=== PATIENT | male | born 1940 ===

== ENCOUNTER 2024-06-02 15:01 | Inpatient (IN) | payer MEDICARE ==
[~2024-06-02] VITALS: Ht 180.3 cm; Wt 92.5 kg
[2024-06-02] MEDS ORDERED: CIPR2.5D14 RIGHTEYE (19:43)
[2024-06-02] MEDS ORDERED: OLAN10TA3 IM (19:43)
[2024-06-02] MEDS ORDERED: POLY30DR RIGHTEYE (19:43)
[2024-06-02] MEDS ORDERED: ASPI-495 PO (19:43)
[2024-06-02] MEDS ORDERED: FURO40TA5 PO (19:43)
[2024-06-02] MEDS ORDERED: ROSU20TA2 PO (19:43)
[2024-06-02] MEDS ORDERED: FOLI0.4T6 PO (19:43)
[2024-06-02] MEDS ORDERED: ERYT30GE8 TP (19:43)
[2024-06-02] MEDS ORDERED: PRED20TA PO (19:43)
[2024-06-02] MEDS ORDERED: IPRA3AMP23 IH (19:43)
[2024-06-02] MEDS ORDERED: VIT1CAPS9 PO (19:43)
[2024-06-02] MEDS ORDERED: TAMS-3 PO (19:43)
[2024-06-02] MEDS ORDERED: METO-358 PO (19:43)
[2024-06-02] MEDS ORDERED: VALA100026 PO (19:43)
[2024-06-02 20:00] VITALS: BP 104/61; TEMP 97.5; O2SAT 96
[2024-06-03] MEDS ORDERED: REMEDY ESSENTIAL ZINC PASTE 113 GM TOP PRN (02:15)
[2024-06-03 05:43] VITALS: O2SAT 95
[2024-06-03 06:00] VITALS: BP 124/70; TEMP 97.7; O2SAT 96
[2024-06-03] MEDS ORDERED: PANT40TA49 PO (09:03)
[2024-06-03] MEDS ORDERED: OLAN10VI IM (09:04)
[2024-06-03] MEDS ORDERED: POTA10CA43 PO (10:56)
[2024-06-03] MEDS ORDERED: CEFT1PIG2 IV (11:51)
[2024-06-03] MEDS ORDERED: ENOX40DI SQ (11:51)
[2024-06-03] MEDS ORDERED: AZIT500V8 IV (11:51)
[2024-06-03] MEDS ORDERED: OLANZAPINE 10 MG VIAL IM PRN (12:30)
[2024-06-03] MEDS ORDERED: FOLIC ACID 0.4 MG TABLET PO SCH (12:30)
[2024-06-03] MEDS ORDERED: AZITHROMYCIN 500 MG VIAL IV SCH (12:30)
[2024-06-03] MEDS ORDERED: ALBUTEROL SULFATE 2.5 MG/ 0.5 ML NEBU NEB PRN (12:30)
[2024-06-03] MEDS: VALACYCLOVIR HCL 500 MG TABLET PO SCH ×2 (13:00→17:52)
[2024-06-03] MEDS: CIPROFLOXACIN 0.3% OPHT DROP 2.5 ML BOTTLE RIGHTEYE SCH (13:00)
[2024-06-03] MEDS ORDERED: CEFTRIAXONE 1 G in IV DEXTROSE 5% 50 ML IV SCH (14:00)
[2024-06-03] MEDS: METOPROLOL SUCCINATE XL 50 MG TAB.SR.24H PO SCH (14:00)
[2024-06-03] MEDS: ENOXAPARIN SODIUM 40 MG/0.4 ML DISP.SYRIN SQ SCH (14:28)
[2024-06-03] MEDS: ASPIRIN EC 81 MG TABLET.DR PO SCH (14:30)
[2024-06-03] MEDS: predniSONE 20 MG TABLET PO SCH (14:31)
[2024-06-03] MEDS: TAMSULOSIN HCL 0.4 MG CAP.SR.24H PO SCH (14:31)
[2024-06-03] MEDS: FOLIC ACID 1 MG TABLET PO SCH (14:31)
[2024-06-03] MEDS: FUROSEMIDE 40 MG TABLET PO SCH (14:33)
[2024-06-03 16:25] VITALS: BP 103/53; TEMP 97.8; O2SAT 97
[2024-06-03 19:50] VITALS: BP 95/53; TEMP 98.2; O2SAT 95
[2024-06-03] MEDS: ATORVASTATIN 20 MG TABLET PO SCH (20:26)
[2024-06-04] MEDS: PANTOPRAZOLE SODIUM 40 MG TABLET.DR PO SCH (06:44)
[2024-06-04] MEDS: POTASSIUM CHLORIDE 10 MEQ TAB.PRT.SR PO SCH (08:29)
[2024-06-04 16:11] VITALS: BP 105/51; TEMP 97.8; O2SAT 96
[2024-06-04 21:26] VITALS: BP 116/67; TEMP 97.8; O2SAT 99
[2024-06-04 21:32] VITALS: O2SAT 98
[2024-06-04] MEDS: ZOLPIDEM 5 MG TABLET PO PRN (23:07)
[2024-06-05 06:07] VITALS: BP 138/62; TEMP 98; O2SAT 100
[2024-06-05 06:28] LABS: BASOPHILS % (AUTO) 0.3 % (0.0-2.0); EOSINOPHILS # (AUTO) 0.1 K/uL (0.0-0.7); HEMOGLOBIN 12.7 g/dL (12.5-16.3); LYMPHOCYTES # (AUTO) 1.8 K/uL (0.8-4.8); LYMPHOCYTES % (AUTO) 21.2 % (20.5-51.5); MEAN CORPUSCULAR HEMOGLOBIN 30.3 uug (23.8-33.4); MEAN CORPUSCULAR HGB CONC 33 g/dL (32.5-36.3); MEAN CORPUSCULAR VOLUME 90.9 fL (73.0-96.2); MONOCYTES # (AUTO) 0.9 K/uL (0.1-1.30); MONOCYTES % (AUTO) 10.9 % (0.0-11.0); NEUTROPHILS # (AUTO) 5.6 K/uL (1.8-8.9); NEUTROPHILS % (AUTO) 66.6 % (38.5-71.5); PLATELET COUNT (AUTO) 263 K/uL (152-348); RED BLOOD CELL COUNT(AUTO) 4.18 MIL/uL (4.06-5.63); WHITE BLOOD COUNT (AUTO) 8.4 K/uL (3.6-10.2)
[2024-06-05 06:43] LABS: ALANINE AMINOTRANSFERASE 18 U/L (16-63); ALBUMIN 2.9 g/dL (3.4-5.0); ALKALINE PHOSPHATASE 77 U/L (50-136); ASPARTATE AMINOTRANSFERASE 10 U/L (15-37); BILIRUBIN,TOTAL 0.8 mg/dL (0.2-1.0); CALCIUM 8.7 mg/dL (8.5-10.1); CARBON DIOXIDE 30 mmol/L (21-32); CHLORIDE 99 mmol/L (98-107); CREATININE 1.4 mg/dL (0.6-1.3); GLUCOSE 105 mg/dL (74-106); MAGNESIUM 2.2 mg/dL (1.8-2.4); PHOSPHOROUS 3.6 mg/dL (2.5-4.9); POTASSIUM 3.9 mmol/L (3.5-5.1); SODIUM SERUM 136 mmol/L (136-145); TOTAL PROTEIN, SERUM 6.9 g/dL (6.4-8.2); UREA NITROGEN, BLOOD 24 mg/dL (7-18)
[2024-06-05 06:52] LABS: DIFFERENTIAL COMMENT 1
[2024-06-05 09:57] VITALS: BP 129/60; TEMP 97.8; O2SAT 99
[2024-06-05 14:30] VITALS: O2SAT 96
[2024-06-05 17:59] VITALS: BP 118/62; TEMP 98; O2SAT 99
[2024-06-05 20:00] VITALS: BP 106/57; TEMP 98.9; O2SAT 95
[2024-06-05] MEDS: MELATONIN 3 MG TABLET PO ONE (20:39)
[2024-06-06 05:21] VITALS: BP 130/67; TEMP 98.1; O2SAT 98
[2024-06-06 15:10] VITALS: O2SAT 97
[2024-06-06 20:21] VITALS: BP 105/57; TEMP 98.4; O2SAT 95
[2024-06-06 20:44] VITALS: O2SAT 95
[2024-06-06] MEDS: MELATONIN 3 MG TABLET PO PRN (23:59)
[2024-06-07 05:57] VITALS: BP 126/71; TEMP 97.6; O2SAT 96
[2024-06-07 20:45] VITALS: BP 110/61; TEMP 97.8; O2SAT 95
[2024-06-08 02:51] VITALS: O2SAT 96
[2024-06-08 06:18] VITALS: BP 129/75; TEMP 98; O2SAT 94
[2024-06-08 09:00] VITALS: O2SAT 98
[2024-06-08] MEDS: POLYVINYL ALCOHOL OPHT DROPS 15 ML BOTTLE EACHEYE PRN (09:27)
[2024-06-08 15:59] VITALS: BP 108/54; TEMP 97.8; O2SAT 99
[2024-06-08 20:10] VITALS: BP 97/54; TEMP 97.5; O2SAT 96
[2024-06-09 06:15] VITALS: BP 119/72; TEMP 97.7; O2SAT 97
[2024-06-09 06:44] LABS: CALCIUM 8.7 mg/dL (8.5-10.1); CARBON DIOXIDE 35 mmol/L (21-32); CHLORIDE 98 mmol/L (98-107); CREATININE 1.4 mg/dL (0.6-1.3); GLUCOSE 109 mg/dL (74-106); POTASSIUM 4.4 mmol/L (3.5-5.1); SODIUM SERUM 134 mmol/L (136-145); UREA NITROGEN, BLOOD 28 mg/dL (7-18)
[2024-06-09 16:17] VITALS: BP 117/57; TEMP 97.8; O2SAT 95
[2024-06-09 20:00] VITALS: BP 107/55; TEMP 98.3; O2SAT 96
[2024-06-09 20:15] VITALS: O2SAT 98
[2024-06-10] MEDS: ACETAMINOPHEN 325 MG TABLET PO PRN (02:30)
[2024-06-10] MEDS: OLANZAPINE 10 MG VIAL IM PRN (02:39)
[2024-06-10 02:49] VITALS: BP 130/70; TEMP 98; O2SAT 98
[2024-06-10 06:00] VITALS: BP 138/74; TEMP 97.5; O2SAT 96
[2024-06-10 16:07] VITALS: BP 103/58; TEMP 97.6; O2SAT 95
[2024-06-10 16:16] VITALS: O2SAT 95
[2024-06-10 20:00] VITALS: BP 99/55; TEMP 98; O2SAT 98
[2024-06-10 21:01] VITALS: O2SAT 96
[2024-06-11] MEDS ORDERED: LORAZEPAM 2 MG/1 ML VIAL ONE (02:15)
[2024-06-11] MEDS: LORAZEPAM 2 MG/1 ML VIAL IM ONE (02:20)
[2024-06-11 06:00] VITALS: BP 154/77; TEMP 97.7; O2SAT 96
[2024-06-11 09:00] VITALS: O2SAT 98
[2024-06-11 15:06] LABS: *BILIRUBIN,URIN NEGATIVE (NEGATIVE); *BLOOD, URINE NEGATIVE (NEGATIVE); *CLARITY,URINE CLEAR (CLEAR); *COLOR,URINE YELLOW (YELLOW); *KETONES,URINE NEGATIVE (NEGATIVE); *PROTEIN,URINE NEGATIVE (NEGATIVE); *UROBILINOGEN,URINE 0.2 E.U./dl (NORMAL); LEUKOCYTE ESTERASE ,URINE NEGATIVE (NEGATIVE); NITRITE, URINE NEGATIVE (NEGATIVE); PH,URINE 6.5 (5.0-8.0); UGLUCOSE NEGATIVE (NEGATIVE)
[2024-06-11 16:00] VITALS: BP 116/63; TEMP 97.6; O2SAT 97
[2024-06-11 20:00] VITALS: BP 106/54; TEMP 97.7; O2SAT 95
[2024-06-11] MEDS: MELATONIN 3 MG TABLET PO PRN (20:57)
[2024-06-12 04:40] VITALS: O2SAT 97
[2024-06-12 06:00] VITALS: BP 113/59; TEMP 97.8; O2SAT 97
[2024-06-12 16:18] VITALS: O2SAT 95
[2024-06-12 16:33] VITALS: BP 102/55; TEMP 97.5; O2SAT 94
[2024-06-12 20:16] VITALS: BP 112/67; TEMP 98.4; O2SAT 95
[2024-06-13 05:02] VITALS: O2SAT 96
[2024-06-13 06:00] VITALS: BP 135/77; TEMP 98.2; O2SAT 98
[2024-06-13 16:33] VITALS: BP 113/63; TEMP 97.8; O2SAT 95
[2024-06-13 17:13] VITALS: O2SAT 97
[2024-06-13 19:43] VITALS: BP 110/59; TEMP 97.3; O2SAT 96
[2024-06-13] MEDS: MAGNESIUM HYDROXIDE 30 ML LIQUID UDC PO PRN (20:38)
[2024-06-14] MEDS: LORAZEPAM 0.5 MG TABLET PO PRN (01:37)
[2024-06-14 04:52] VITALS: O2SAT 96
[2024-06-14 06:04] VITALS: BP 119/63; TEMP 97.5; O2SAT 95
[2024-06-14] MEDS: predniSONE 10 MG TABLET PO SCH (09:11)
[2024-06-14 15:38] VITALS: BP 123/59; TEMP 98.5; O2SAT 98
[2024-06-14 20:00] VITALS: BP 107/61; TEMP 98.1; O2SAT 98
[2024-06-14] MEDS: TEMAZEPAM 15 MG CAPSULE PO PRN (20:58)
[2024-06-15 04:11] VITALS: O2SAT 97
[2024-06-15 06:00] VITALS: BP 130/72; TEMP 97.4; O2SAT 95
[2024-06-15 08:43] VITALS: BP 130/72
[2024-06-15] MEDS: [UNRECOGNIZED DRUG - OTHER] IM ONE (14:10)
== END 2024-06-15 16:30 | disposition still patient (30) | DRG 947 ==
LOC: EDSEX 18:31
PROVIDERS: ADMIT Physical Medicine & Rehabilitation Pain Medicine; ATTEND Physical Medicine & Rehabilitation Pain Medicine
DX: R53.1 Weakness (principal); G93.41 Metabolic encephalopathy; I50.31 Acute diastolic (congestive) heart failure; J18.9 Pneumonia, unspecified organism; I13.0 Hypertensive heart and chronic kidney disease with heart failure and stage 1 through stage 4 chronic kidney disease, or unspecified chronic kidney disease; J44.0 Chronic obstructive pulmonary disease with (acute) lower respiratory infection; N17.9 Acute kidney failure, unspecified; E44.0 Moderate protein-calorie malnutrition; E87.1 Hypo-osmolality and hyponatremia; F03.918 Unspecified dementia, unspecified severity, with other behavioral disturbance; F03.92 Unspecified dementia, unspecified severity, with psychotic disturbance; E11.22 Type 2 diabetes mellitus with diabetic chronic kidney disease; E78.5 Hyperlipidemia, unspecified; F03.90 Unspecified dementia, unspecified severity, without behavioral disturbance, psychotic disturbance, mood disturbance, and anxiety; N18.9 Chronic kidney disease, unspecified; N40.0 Benign prostatic hyperplasia without lower urinary tract symptoms; B02.9 Zoster without complications; D64.9 Anemia, unspecified; F29 Unspecified psychosis not due to a substance or known physiological condition; Z91.81 History of falling; G93.89 Other specified disorders of brain; I25.10 Atherosclerotic heart disease of native coronary artery without angina pectoris; Z95.1 Presence of aortocoronary bypass graft; Z91.012 Allergy to eggs
CPT/HCPCS: 36415; 70450; 83735; 84100; 85025; 97535-GO-CO; J0696; J1650; J2060; J2358; J7512